=== PATIENT | male | born 2000 | race Caucasian/White ===

== ENCOUNTER 2020-09-26 00:46 | Emergency (ER) | payer BC ==
[2020-09-26] MEDS ORDERED: Zofran 4 MG/2 ML VIAL IV ONE (01:13)
[2020-09-26] MEDS ORDERED: SUBLIMAZE 100 MCG/2 ML IV ONE (01:13)
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
[2020-09-26] MEDS ORDERED: Sodium Chloride 0.9% 1000 ML 1,000 ML IV SCH (01:15)
[2020-09-26] MEDS ORDERED: Zofran 4 MG/2 ML VIAL ONE (01:46)
[2020-09-26] MEDS ORDERED: ROCEPHIN 1 Gm-D5w 50 ml Bag** 1 G/50 ML IVPB IV STA (01:46)
[2020-09-26] MEDS ORDERED: SUBLIMAZE 100 MCG/2 ML ONE (01:46)
[2020-09-26] MEDS ORDERED: Sodium Chloride 0.9% 1000 ML 1,000 ML ONE (01:46)
[2020-09-26] MEDS ORDERED: ROCEPHIN 1 Gm-D5w 50 ml Bag** 1 G/50 ML IVPB IV ONE (01:59)
[2020-09-26 02:05] LABS: Absolute Neutrophil Ct (ANC) 11.67 (1.4-6.9); BASOPHIL % 0.1 % (0.0-0.4); Basophil (Absolute #) 0.02 (0-0.4); Eosinophil % 1.3 % (0.00-5.0); Hemoglobin 16.9 gm/dl (12.5-18.0); Lymphocyte (Absolute #) 2.19 (1.0-4.6); Lymphocytes % 14.7 % (24.0-44.0); Mean Cell Volume 88.4 fl (78-100); Mean Corpuscular Hemoglobin 30.5 pg (26-32); Mean Corpuscular Hgb Concent. 34.5 g/dl (32-36); Mean Platelet Volume 9.8 fl (7.5-11.0); Monocyte (Absolute #) 0.82 (0.0-1.3); Monocytes % 5.5 % (0.0-12.0); Neutrophil % 78.4 % (36.0-66.0); Platelet Count 271 K/mm3 (150-450); Red Blood Count 5.54 M/mm3 (4.1-5.6); Red Cell Distribution Width 12.9 % (11.5-14.0); White Blood Count 14.9 K/mm3 (4.0-10.5)
[2020-09-26 02:10] LABS: Appearance CLEAR (CLEAR); Bilirubin NEGATIVE (NEGATIVE); Blood NEGATIVE Ery/ul (0-5); Glucose NEGATIVE (NEGATIVE); Ketones NEGATIVE (NEGATIVE); Leukocyte Esterase NEGATIVE (NEGATIVE); Mucus SLIGHT /HPF (NEGATIVE); Nitrite NEGATIVE (NEGATIVE); Protein,Urine Dip NEGATIVE (Negative); Urobilinogen NEGATIVE mg/dL (0-1)
[2020-09-26 02:17] LABS: ALBUMIN 5.3 g/dL (3.5-5.0); ALKALINE PHOSPHATASE 96 U/L (38-126); AMYLASE 83 U/L (30-110); ANION GAP 12.8 MEQ/L (5-15); BLOOD UREA NITROGEN 14 mg/dL (9-20); CHLORIDE 103 mmol/L (98-107); Calcium 10.2 mg/dL (8.4-10.2); Carbon Dioxide 27 mmol/L (22-30); Creatinine 1 1.01 mg/dL (0.66-1.25); EST GLOMERULAR FILTRATION RATE > 60.0 ML/MIN; Glucose 101 mg/dL (74-106); LIPASE 88 U/L (23-300); Potassium 3.7 mmol/L (3.5-5.1); SGOT/AST 33 U/L (17-59); SGPT/ALT 25 U/L (0-50); SODIUM 139 mmol/L (137-145); Total Protein 8.3 g/dL (6.3-8.2)
[2020-09-26 02:24] LABS: Amphetamine,Urine NEGATIVE (NEGATIVE); Barbiturate,Urine NEGATIVE (NEGATIVE); Benzodiazepine,Urine NEGATIVE (NEGATIVE); Cocaine,Urine NEGATIVE (NEGATIVE); Methadone,Urine NEGATIVE (NEGATIVE); Opiate,Urine NEGATIVE (NEGATIVE); PCP,Urine NEGATIVE (NEGATIVE); THC,Urine NEGATIVE (NEGATIVE)
[2020-09-26] MEDS ORDERED: NORCO 5/325 MG PO ONE (02:50)
[2020-09-26] MEDS ORDERED: NORCO 5/325 MG ONE (02:52)
[2020-09-26 03:07] VITALS: BP 126/96; PULSE 73; O2SAT 100
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
== END 2020-09-26 03:07 | disposition home or self-care (01) ==
LOC: ED 00:46
DX: S02.2XXA Fracture of nasal bones, initial encounter for closed fracture (principal); S02.32XA Fracture of orbital floor, left side, initial encounter for closed fracture; S06.9X0A Unspecified intracranial injury without loss of consciousness, initial encounter; S01.21XA Laceration without foreign body of nose, initial encounter; S30.810A Abrasion of lower back and pelvis, initial encounter; V57.5XXA Driver of pick-up truck or van injured in collision with fixed or stationary object in traffic accident, initial encounter; Y92.89 Other specified places as the place of occurrence of the external cause; H05.222 Edema of left orbit; R10.9 Unspecified abdominal pain
CPT/HCPCS: 36000; 36415; 70450; 70486; 72125; 80053; 80307; 81001; 82150; 83690; 85025; 96365; 96374; 96375; 99285; J0696; J2405; J3010; A9270-GY; G0480

== ENCOUNTER 2022-05-09 08:04 | Emergency (ER) | payer BC ==
--- NOTE | 2022-05-09 08:13 | ERPHSYRPT ---
- History of Present Illness Time Seen by Provider: 05/09/22 08:13 Historian: patient Exam Limitations: no limitations Physician History: This is a thin 21-year-old white male who has had no prior abdominal surgeries and is not on any medication and has no known drug allergies and presents with sudden onset of bilateral upper quadrant abdominal pain. It is severe and nonradiating. He has associated nausea. He has not had any vomiting. Last night, per significant other report, the patient had a few episodes of diarrhea. Patient has not had a fever. He has no cough. He has no chest pain. He has no shortness of breath. He has never had anything like this before in the past. Timing/Duration: today, hour(s) (1) Quality: aching Abdominal Pain Onset Location: RUQ, LUQ Pain Radiation: no radiation Severity of Pain-Max: moderate Severity of Pain-Current: moderate Modifying Factors: Improves With: nothing Associated Symptoms: loss of appetite, nausea, other (Diarrhea last night) Previous symptoms: no prior history, no recent treatment Allergies/Adverse Reactions: No Known Drug Allergies Allergy (Verified 05/09/22 08:20) Hx Tetanus, Diphtheria Vaccination/Date Given: Yes Hx Influenza Vaccination/Date Given: No Hx Pneumococcal Vaccination/Date Given: No Travel Risk - International Travel Have you traveled outside of the country in past 3 weeks: No - Coronavirus Screening Are you exhibiting any of the following symptoms?: No Close contact with a COVID-19 positive Pt in past 14-21 Days: No - Review of Systems Constitutional: No Symptoms Eyes: No Symptoms Ears, Nose, & Throat: No Symptoms Respiratory: No Symptoms Cardiac: No Symptoms Abdominal/Gastrointestinal: Abdominal Pain, Nausea, Diarrhea (Last night), No Vomiting, No Constipation Genitourinary Symptoms: No Symptoms Musculoskeletal: No Symptoms Skin: No Symptoms Neurological: No Symptoms Psychological: No Symptoms Endocrine: No Symptoms Hematologic/Lymphatic: No Symptoms Immunological/Allergic: No Symptoms All Other Systems: Reviewed and Negative - Past Medical History Pertinent Past Medical History: Yes Respiratory History: Asthma - Past Surgical History Past Surgical History: No - Social History Smoking Status: Never smoker Exposure to second hand smoke: No Drug Use: none Patient Lives Alone: No - Nursing Vital Signs Nursing Vital Signs: Initial Vital Signs Temperature 98.2 F 05/09/22 08:15 Pulse Rate 75 05/09/22 08:15 Respiratory Rate 24 05/09/22 08:15 Blood Pressure 147/101 05/09/22 08:15 O2 Sat by Pulse Oximetry 98 05/09/22 08:15 Pain Scale Pain Intensity 5 - Physical Exam General Appearance: mild distress, alert, anxiety, thin Eye Exam: PERRL/EOMI, eyes nml inspection Ears, Nose, Throat Exam: normal ENT inspection, moist mucous membranes Neck Exam: normal inspection, non-tender, supple, full range of motion Respiratory Exam: normal breath sounds, lungs clear, airway intact, No chest tenderness, No respiratory distress Cardiovascular Exam: regular rate/rhythm, normal heart sounds, normal peripheral pulses Gastrointestinal/Abdomen Exam: soft, normal bowel sounds, tenderness (Bilateral upper quadrant and epigastric area with palpation), guarding (Bilateral upper quadrant area and epigastric area with palpation), No rebound Rectal Exam: not done Back Exam: normal inspection, normal range of motion, No CVA tenderness, No vertebral tenderness Extremity Exam: normal inspection, normal range of motion, pelvis stable Neurologic Exam: alert, oriented x 3, cooperative, necktie operator pockets and pieces II-XII nml as tested, normal mood/affect, nml cerebellar function, nml station & gait, sensation nml Skin Exam: normal color, warm, dry Lymphatic Exam: No adenopathy SpO2 Interpretation: normal O2 Delivery: Room Air - Course Nursing assessment & vital signs reviewed: Yes Ordered Tests: Active Orders 24 hr Category Date Time Status IV Insertion STAT Care 05/09/22 08:24 Active ABDOMEN AND PELVIS W/0 CONTRAS [CT] Stat Exams 05/09/22 08:25 Completed AMYLASE Stat Lab 05/09/22 08:24 Completed CBC W DIFF Stat Lab 05/09/22 08:24 Completed CMP Stat Lab 05/09/22 08:24 Completed CULTURE,URINE Stat Lab 05/09/22 11:10 Received LIPASE Stat Lab 05/09/22 08:24 Completed UA W/RFX CULTURE Stat Lab 05/09/22 11:10 Completed Medication Summary Discontinued Medications Generic Name Dose Route Start Last Admin Trade Name Freq PRN Reason Stop Dose Admin Al Hydrox/Mg Hydrox/Simethicone Confirm 05/09/22 10:18 Mag Hydrox/Al Hydrox/Simeth 30 Ml Udcup Administered 05/09/22 10:19 Dose 30 ml .ROUTE .STK-MED ONE Hydromorphone HCl 1 mg 05/09/22 08:24 05/09/22 08:33 Hydromorphone 1 Mg/1ml Inj 1 Mg/Ml Syringe IV 05/09/22 08:25 1 mg STAT ONE Administration Hydromorphone HCl Confirm 05/09/22 08:31 Hydromorphone 1 Mg/1ml Inj 1 Mg/Ml Syringe Administered 05/09/22 08:32 Dose 1 mg .ROUTE .STK-MED ONE Sodium Chloride 1,000 mls @ 999 mls/hr 05/09/22 08:24 05/09/22 10:00 Sodium Chloride 0.9% 1000 Ml IV 05/09/22 09:24 Infused .Q1H1M STA Infusion Sodium Chloride Confirm 05/09/22 08:31 Sodium Chloride 0.9% 1000 Ml Administered 05/09/22 08:32 Dose 1,000 mls @ ud .ROUTE .STK-MED ONE Sodium Chloride 500 mls @ 500 mls/hr 05/09/22 10:00 05/09/22 10:22 Sodium Chloride 0.9% 500 Ml IV 05/09/22 10:59 500 mls/hr .Q1H ONE Administration Sodium Chloride Confirm 05/09/22 10:19 Sodium Chloride 0.9% 500 Ml Administered 05/09/22 10:20 Dose 500 mls @ ud IV .STK-MED ONE Lidocaine HCl Confirm 05/09/22 10:18 Lidocaine Hcl 2% Viscous 15 Ml Udcup Administered 05/09/22 10:19 Dose 30 ml .ROUTE .STK-MED ONE Magnesium Hydroxide 45 ml 05/09/22 10:00 05/09/22 10:22 Mag Hydrx/Alum Hyd/Simeth/Lido 45 Ml Bottle PO 05/09/22 10:01 45 ml STAT ONE Administration Ondansetron HCl 4 mg 05/09/22 08:24 05/09/22 08:33 Ondansetron Hcl 4 Mg/2 Ml Vial IV 05/09/22 08:25 4 mg STAT ONE Administration Ondansetron HCl Confirm 05/09/22 08:31 Ondansetron Hcl 4 Mg/2 Ml Vial Administered 05/09/22 08:32 Dose 4 mg .ROUTE .STK-MED ONE Pantoprazole Sodium 40 mg 05/09/22 08:24 05/09/22 08:33 Pantoprazole 40 Mg Vial IV 05/09/22 08:25 40 mg STAT ONE Administration Pantoprazole Sodium Confirm 05/09/22 08:31 Pantoprazole 40 Mg Vial Administered 05/09/22 08:32 Dose 40 mg IV .STK-MED ONE Lab/Rad Data: Laboratory Result Diagrams 05/09/22 08:24 05/09/22 08:24 Laboratory Results 05/09/22 05/09/22 05/09/22 Range/Units 11:10 08:24 08:24 WBC 7.0 (4.0-10.5) x10^3/uL RBC 5.50 (4.1-5.6) x10^6/uL Hgb 16.8 (12.5-18.0) g/dL Hct 48.4 (42-50) % MCV 88.0 (78-100) fL MCH 30.5 (26-32) pg MCHC 34.7 (32-36) g/dL RDW 12.5 (11.5-14.0) % Plt Count 285 (150-450) x10^3/uL MPV 9.7 (7.5-11.0) fL Gran % 60.6 (36.0-66.0) % Immature Gran % (Auto) 0.3 (0.00-0.4) % Nucleat RBC Rel Count 0.0 (0.00-0.1) % Eos # (Auto) 0.55 H (0-0.5) x10^3/uL Immature Gran # (Auto) 0.02 (0.00-0.03) x10^3u/L Absolute Lymphs (auto) 1.63 (1.0-4.6) x10^3/uL Absolute Monos (auto) 0.51 (0.0-1.3) x10^3/uL Absolute Nucleated RBC 0.00 (0.00-0.01) x10^3u/L Lymphocytes % 23.3 L (24.0-44.0) % Monocytes % 7.3 (0.0-12.0) % Eosinophils % 7.9 H (0.00-5.0) % Basophils % 0.6 (0.0-0.4) % Absolute Granulocytes 4.25 (1.4-6.9) x10^3/uL Basophils # 0.04 (0-0.4) x10^3/uL Sodium 146 H (137-145) mmol/L Potassium 4.2 (3.5-5.1) mmol/L Chloride 109 H (98-107) mmol/L Carbon Dioxide 22 (22-30) mmol/L Anion Gap 18.3 H (5-15) MEQ/L BUN 13 (9-20) mg/dL Creatinine 0.83 (0.66-1.25) mg/dL Estimated GFR > 60.0 ML/MIN Glucose 98 (74-106) mg/dL Calcium 9.5 (8.4-10.2) mg/dL Total Bilirubin 1.10 (0.2-1.3) mg/dL AST 60 H (17-59) U/L ALT 54 H (0-50) U/L Alkaline Phosphatase 108 (38-126) U/L Serum Total Protein 8.0 (6.3-8.2) g/dL Albumin 5.2 H (3.5-5.0) g/dL Amylase 86 (30-110) U/L Lipase 149 (23-300) U/L Urinalys Dipstick Clnc MAIN LAB Urine Color YELLOW (YELLOW) Urine Appearance CLEAR (CLEAR) Urine pH 6.5 (5-6) Ur Specific [place] 1.025 (1.005-1.025) POC Urine Protein Conf TRACE (Negative) Urine Ketones NEGATIVE (NEGATIVE) Urine Nitrite NEGATIVE (NEGATIVE) Urine Bilirubin NEGATIVE (NEGATIVE) Urine Urobilinogen 0.2 (0-1) mg/dL Urine Leukocytes NEGATIVE (NEGATIVE) Urine WBC (Auto) NONE (0-5) /HPF Urine RBC (Auto) NONE (0-2) /HPF U Epithel Cells (Auto) NONE (FEW) /HPF Urine Bacteria (Auto) NONE (NEGATIVE) /HPF Urine RBC TRACE-INTACT (0-5) Andrew/ul Urine Mucus (Auto) SLIGHT (NEGATIVE) /HPF Ur Culture Indicated? YES Urine Glucose NEGATIVE (NEGATIVE) mg/dL - Progress Progress: improved, re-examined Progress Note: 05/09/22 09:28 CAT scan of the abdomen and pelvis without contrast is normal with no acute findings in the abdomen or pelvis. There is a left lung granuloma present. Counseled pt/family regarding: lab results, diagnosis, need for follow-up, rad results - Departure Departure Disposition: Home Clinical Impression: Abdominal pain Condition: Stable Critical Care Time: No Referrals: DOCTOR,NO FAMILY [Primary Care Provider] - Follow up/PCP as directed Additional Instructions: Avoid fatty greasy spicy foods. Avoid nicotine and caffeine products. Follow- up with your primary care physician today to make arrangements for further evaluation and management including an ultrasound of the gallbladder if indicated. Take your medications as prescribed. Prescriptions: Ondansetron ODT 4 MG [Zofran Odt 4 mg] 4 mg PO Q6H PRN PRN #10 tablet PRN Reason: Vomiting Hydrocodone/APAP 5/325 [[place] 5/325 mg] 1 each PO Q8H PRN PRN #6 tablet MDD 3 PRN Reason: Pain Famotidine 20 mg [Pepcid 20 MG] 20 mg PO DAILY #10 tablet
[2022-05-09] MEDS ORDERED: Zofran 4 MG/2 ML VIAL IV ONE (08:24)
[2022-05-09] MEDS ORDERED: Hydromorphone 1 mg/ml Injection IV ONE (08:24)
[2022-05-09] MEDS ORDERED: PROTONIX 40 MG IV IV ONE ×2 (08:24→08:31)
[2022-05-09] MEDS ORDERED: Sodium Chloride 0.9% 1000 ML 1,000 ML IV STA (08:24)
[2022-05-09] MEDS ORDERED: Hydromorphone 1 mg/ml Injection ONE (08:31)
[2022-05-09] MEDS ORDERED: Sodium Chloride 0.9% 1000 ML 1,000 ML ONE (08:31)
[2022-05-09] MEDS ORDERED: Zofran 4 MG/2 ML VIAL ONE (08:31)
[2022-05-09 08:35] LABS: Absolute Neutrophil Ct (ANC) 4.25 x10^3/uL (1.4-6.9); Basophil (Absolute #) 0.04 x10^3/uL (0-0.4); Eosinophil % 7.9 % (0.00-5.0); Eosinophil (Absolute #) 0.55 x10^3/uL (0-0.5); Hematocrit 48.4 % (42-50); Hemoglobin 16.8 g/dL (12.5-18.0); Lymphocyte (Absolute #) 1.63 x10^3/uL (1.0-4.6); Lymphocytes % 23.3 % (24.0-44.0); Mean Corpuscular Hemoglobin 30.5 pg (26-32); Mean Corpuscular Hgb Concent. 34.7 g/dL (32-36); Mean Platelet Volume 9.7 fL (7.5-11.0); Monocyte (Absolute #) 0.51 x10^3/uL (0.0-1.3); Monocytes % 7.3 % (0.0-12.0); Neutrophil % 60.6 % (36.0-66.0); Platelet Count 285 x10^3/uL (150-450); Red Cell Distribution Width 12.5 % (11.5-14.0)
[2022-05-09 08:46] LABS: ALBUMIN 5.2 g/dL (3.5-5.0); ALKALINE PHOSPHATASE 108 U/L (38-126); AMYLASE 86 U/L (30-110); ANION GAP 18.3 MEQ/L (5-15); BLOOD UREA NITROGEN 13 mg/dL (9-20); CHLORIDE 109 mmol/L (98-107); Calcium 9.5 mg/dL (8.4-10.2); Carbon Dioxide 22 mmol/L (22-30); Creatinine 1 0.83 mg/dL (0.66-1.25); EST GLOMERULAR FILTRATION RATE > 60.0 ML/MIN; Glucose 98 mg/dL (74-106); LIPASE 149 U/L (23-300); Potassium 4.2 mmol/L (3.5-5.1); SGOT/AST 60 U/L (17-59); SGPT/ALT 54 U/L (0-50); SODIUM 146 mmol/L (137-145)
--- NOTE | 2022-05-09 09:12 | XRAY ---
Indication: Epigastric pain. Multiple contiguous axial images obtained through the abdomen and pelvis without contrast. Comparison: None Lung bases demonstrate 1 cm left base calcified granuloma. No infiltrate or effusion. Heart not enlarged. Noncontrasted stomach and bowel loops appear nonobstructed with normal air-filled appendix. No free fluid/air. Remaining liver, gallbladder, pancreas, spleen, adrenal glands, kidneys, ureters, bladder, and aorta are unremarkable for noncontrast exam. Osseous structures intact. No ventral or inguinal hernias. Impression: Normal CT abdomen/pelvis without contrast exam. Incidental left lung base calcified granuloma.
[2022-05-09] MEDS ORDERED: GI COCKTAIL 45 ML (Maalox/Lidocaine) PO ONE (10:00)
[2022-05-09] MEDS ORDERED: Sodium Chloride 0.9% 500 ML 500 ML IV ONE ×2 (10:00→10:19)
[2022-05-09] MEDS ORDERED: XYLOCAINE VISCOUS 2% 15 ML CUP ONE (10:18)
[2022-05-09] MEDS ORDERED: MAALOX ES 30 ML UNIT DOSE ONE (10:18)
[2022-05-09 11:12] LABS: Mucus SLIGHT /HPF (NEGATIVE)
[2022-05-09 11:13] LABS: Appearance CLEAR (CLEAR); Bilirubin NEGATIVE (NEGATIVE); Dipstick done @ ? MAIN LAB; Glucose NEGATIVE (NEGATIVE); Ketones NEGATIVE (NEGATIVE); Nitrite NEGATIVE (NEGATIVE); Ph 6.5 (5-6); Protein,Urine Dip TRACE (Negative); RBC TRACE-INTACT Ery/ul (0-5); Specific Gravity 1.025 (1.005-1.025); Urine Cultured Indicated? YES; Urobilinogen 0.2 mg/dL (0-1)
[2022-05-09 11:14] VITALS: BP 128/74; PULSE 66; O2SAT 97
== END 2022-05-09 11:49 | disposition home or self-care (01) ==
LOC: ED 08:04
DX: R10.11 Right upper quadrant pain (principal); R10.12 Left upper quadrant pain; R11.0 Nausea; R19.7 Diarrhea, unspecified; Z79.891 Long term (current) use of opiate analgesic
CPT/HCPCS: 36000; 36415; 74176; 80053; 81015; 82150; 83690; 85025; 87086; 96360; 96374; 96375; 99284; J1170; J2405; A9270-GY

== ENCOUNTER 2025-02-08 13:29 | Emergency (ER) | payer BC ==
--- NOTE | 2025-02-08 13:51 | ERPHSYRPT ---
- History of Present Illness Time Seen by Provider: 02/08/25 13:51 Source: patient Exam Limitations: no limitations Physician History: This is a 24-year-old white male patient who was playing basketball during a break at work approximately 1 hour prior to arrival. He has swelling in the lateral aspect of his right ankle. Patient states it hurts to bear weight. Occurred: just prior to arrival Quality: constant, aching, throbbing Severity of Pain-Max: moderate Severity of Pain-Current: moderate Lower Extremities Pain: ankle: right Modifying Factors: Improves With: movement Associated Symptoms: other (Hurts to bear weight but can do so) Allergies/Adverse Reactions: No Known Drug Allergies Allergy (Verified 05/09/22 08:20) Hx Tetanus, Diphtheria Vaccination/Date Given: Yes Hx Influenza Vaccination/Date Given: No Hx Pneumococcal Vaccination/Date Given: No Travel Risk - International Travel Have you traveled outside of the country in past 3 weeks: No - Emerging Infectious Disease Are you exhibiting symptoms associated with any current EIDs: No - Review of Systems Constitutional: No Symptoms Eyes: No Symptoms Ears, Nose, & Throat: No Symptoms Respiratory: No Symptoms Cardiac: No Symptoms Abdominal/Gastrointestinal: No Symptoms Genitourinary Symptoms: No Symptoms Musculoskeletal: Injury (Right ankle) Skin: No Symptoms Neurological: No Symptoms Psychological: No Symptoms Endocrine: No Symptoms Hematologic/Lymphatic: No Symptoms Immunological/Allergic: No Symptoms All Other Systems: Reviewed and Negative - Past Medical History Pertinent Past Medical History: Yes Respiratory History: Asthma - Past Surgical History Past Surgical History: No - Social History Smoking Status: Never smoker Exposure to second hand smoke: No Drug Use: none Patient Lives Alone: No - Nursing Vital Signs Nursing Vital Signs: Initial Vital Signs Temperature 97.8 F 02/08/25 13:49 Pulse Rate 88 02/08/25 13:49 Respiratory Rate 22 02/08/25 13:49 Blood Pressure 133/79 02/08/25 13:49 O2 Sat by Pulse Oximetry 100 02/08/25 13:49 Pain Scale Pain Intensity 8 - Physical Exam General Appearance: no apparent distress, alert, anxiety Eyes, Ears, Nose, Throat Exam: normal ENT inspection, moist mucous membranes Neck Exam: normal inspection, non-tender, supple, full range of motion Cardiovascular/Respiratory Exam: chest non-tender, no respiratory distress Gastrointestinal/Abdominal Exam: non-tender Back Exam: normal inspection, normal range of motion, No CVA tenderness, No vertebral tenderness Hips Exam: bilateral: non-tender, normal inspection, normal range of motion, no evidence of injury Legs Exam: bilateral leg: non-tender, normal inspection, normal range of motion, no evidence of injury Knees Exam: bilateral knee: non-tender, normal inspection, normal range of motion, no evidence of injury Ankle Exam: right ankle: bone tenderness, limited range of motion, soft tissue tenderness, swelling (Lateral), left ankle: non-tender, normal inspection, normal range of motion, no evidence of injury Foot Exam: bilateral foot: non-tender, normal inspection, normal range of motion, no evidence of injury Neuro/Tendon Exam: normal sensation, normal motor functions, normal tendon functions, no evidence tendon injury Mental Status Exam: alert, oriented x 3, cooperative Skin Exam: normal color, warm, dry SpO2 Interpretation: normal O2 Delivery: Room Air - Course Nursing assessment & vital signs reviewed: Yes Ordered Tests: Active Orders 24 hr Category Date Time Status ANKLE (3 VIEWS) Stat Exams 02/08/25 13:55 Taken FOOT (MINIMUM 3 VIEWS) Stat Exams 02/08/25 13:55 Taken - Progress Progress: unchanged, pain not gone completely, re-examined Progress Note: 02/08/25 14:17 My medical decision making of the assignment of low complexity of this patient's medical issue today is based on review of the patient's past medical history, review the patient's medication list, reviewed patient drug allergy list, history present illness and physical findings on examination. The workup in this patient includes x-ray of the patient's right ankle. Differential diagnosis includes but is not limited to right ankle sprain, right ankle fracture, right ankle dislocation I interpreted the patient's preliminary x-ray report of his right ankle. I see soft tissue swelling overlying the lateral malleolus. Otherwise, I do not appreciate an acute fracture or dislocation. Counseled pt/family regarding: diagnosis, need for follow-up, rad results Medical Desision Making - Independent Historian Additional History obtained from: Spouse - Diagnostic Testing Diagnostic test were ordered, analyzed, and reviewed by me: Yes Radiological Interpretation: Interpreted by me, Teleradiologist Report - Risk of complications The pt has a mod risk of morbidity or mortality based on: Need for prescription drug management - Departure Departure Disposition: Home Clinical Impression: Right ankle sprain Condition: Stable Critical Care Time: No Referrals: DOCTOR,NO FAMILY [Primary Care Provider] - Follow up/PCP as directed Additional Instructions: Add ibuprofen 600 mg orally 3 times a day for the next 5 days to help relieve pain and swelling. Ice pack to the tender swollen area 3-4 times a day for the next 3 days. Call your primary care provider tomorrow, 02/08/2025, to make arrangement for follow-up appointment for further evaluation and management. Other options include calling your orthopedic surgeon of choice tomorrow morning to make arranges for follow-up appointment. The final option is to follow-up in the [facility] podiatric/walk-in clinic tomorrow morning between 8 AM and 10 AM for reevaluation and management. This is a walk-in clinic and you do not need to have an appointment. Minimize your weightbearing until you get to the point where there is minimal pain with ambulating. Use the crutches for nonweightbearing until there is no pain. Sylvester wrap to minimize swelling and pain Prescriptions: Oxycodone HCl/Acetaminophen [Percocet 5-325 mg Tablet] 1 each PO Q12H PRN PRN #5 tablet MDD 2 PRN Reason: Moderate To Severe Pain
[2025-02-08 13:54] VITALS: TEMP 97.8
--- NOTE | 2025-02-08 14:19 | XRAY ---
Indication: Pain following twisting injury. Comparison: November 30, 2023 3 nonweightbearing views right foot demonstrates new anterolateral ankle soft tissue swelling. No other bony, articular, or soft tissue abnormalities.
--- NOTE | 2025-02-08 14:19 | XRAY ---
Indication: Pain following twisting injury. Comparison: None 3 view right ankle demonstrates anterolateral soft tissue swelling. No other bony, articular, or soft tissue abnormalities.
[2025-02-08 14:32] VITALS: BP 130/84; PULSE 84; RESP 20; O2SAT 98
[2025-02-08] MEDS ORDERED: PERCOCET TABLET 5/325MG ONE (14:35)
[2025-02-08] MEDS ORDERED: MOTRIN 600 MG ONE (14:35)
[2025-02-08] MEDS: MOTRIN 600 MG PO ONE (14:46)
[2025-02-08] MEDS: PERCOCET TABLET 5/325MG PO STA (14:46)
== END 2025-02-08 14:55 | disposition home or self-care (01) ==
LOC: ED 13:29
DX: S93.401A Sprain of unspecified ligament of right ankle, initial encounter (principal); X50.0XXA Overexertion from strenuous movement or load, initial encounter; Y93.67 Activity, basketball; Z79.891 Long term (current) use of opiate analgesic
CPT/HCPCS: 73610; 73630; 99283; A9270-GY